=== PATIENT | female | born 1945 | race Caucasian/White ===

== ENCOUNTER 2017-10-09 05:16 | Day surgery (SDC) | payer OTHER ==
[2017-10-08 12:29] LABS: HEMATOCRIT 43.2 % (36.0-48.0); HEMOGLOBIN 14.1 g/dL (12-16); MCH 28.6 pg (26.0-34.0); MCHC 32.6 g/dL (31.0-37.0); MCV 87.6 fL (80.0-100.0); MEAN PLATELET VOLUME 11.8 fL (7.4-10.4); RBC 4.93 10x6/uL (4.00-5.40); RDW 14.1 % (11.5-14.5); WBC 6.7 10x3/uL (4.8-10.8)
[2017-10-09 10:22] VITALS: BP 154/84; BMI 33.7
--- NOTE | 2017-10-09 16:09 | NUR ---
1610--IV DC'D, PT UP TO DRESS AT THIS TIME. SHEN RN
--- NOTE | 2017-10-09 16:36 | NUR ---
1635--IV DC'D, PT UP TO DRESS AT THIS TIME. SHEN RN
--- NOTE | 2017-10-09 16:42 | NUR ---
1640--DISCHARGE INSTRUCTIONS GIVEN, PT VERBALIZES UNDERSTANDING. PT OFF UNIT VIA [place]. SHEN CLEMONS
--- NOTE | 2017-11-06 11:32 | OP ---
PATIENT NAME: JUAN DAVID CASTLE MEDICAL RECORD: [id number] :45 LOCATION:[facility] ADMISSION DATE: SURGEON: LEONARDO PLATA DPM DATE OF OPERATION: 10/09/2017 PREOPERATIVE DIAGNOSIS: Peroneal brevis tendinosis. POSTOPERATIVE DIAGNOSIS: Peroneal brevis tendinosis. PROCEDURES: Peroneal longus tendon transfer and peroneal brevis debridement. ANESTHESIA: Local with IV sedation utilizing lidocaine and Marcaine plain, approximately 18 cc total around the lateral right foot. HEMOSTASIS: Right thigh tourniquet at 350 mmHg. PREOPERATIVE DETAILS: The patient was taken to the OR and placed on the operative table in supine position followed by induction of general anesthesia and infiltration of local anesthetic. The right extremity was then prepped and draped in usual aseptic technique followed by exsanguination and inflation of tourniquet. A #15 blade was used to create an incision from the posterior aspect of the right fibula distally to the base of the fifth metatarsal. The incision was deepened down through subcutaneous tissue, noting a significantly large deposit of fat, which was excised. Dissection was carried down to the peroneal tendons. The sheath was incised. Upon initial incision of the sheath, there was significant amount of red inflammatory thick fluid that came out of the sheath. The sheath was laid open from just posterior to the fibula to near the cuboid. The brevis tendon was visualized. There was significant tendinosis and longitudinal tears, many in number. The tendon was not repairable or salvageable. At this time, just posterior to the fibula, the tendon was tacked with 2-0 Vicryl, then cut, and sutured to the peroneal longus tendon. Dissection was carried distal to the base of the fifth metatarsal, where the peroneal brevis tendon was cut there as well and sent to pathology. Dissection was carried down to the peroneal longus as it entered the plantar aspect of the foot and was transected. A tendon anchor was placed in the base of the fifth metatarsal and the peroneal longus tendon was sutured securely with FiberWire to the base of the fifth metatarsal. Excellent rigid fixation was noted. Deep layers were repaired with 2-0 Vicryl including the tendon sheath, the subcutaneous tissue with 4-0 Vicryl, and the skin was closed with skin luzma. Adaptic, 4 x 4, and Conform were used to dress the wound followed by modified Barcenas compression dressing. Tourniquet was deflated. POSTOPERATIVE DETAILS: The patient tolerated the procedure well and left the OR with vital signs stable and vascular status at preoperative levels. The patient was transferred to recovery per anesthesia in stable condition. TRANSINT:[id number] Voice Confirmation ID: [id number] DOCUMENT ID: [id number] OPERATIVE REPORT [id number] JUAN DAVID CASTLE, LEONARDO THOMPSON at 1132 CC: [id number] DICTATION DATE: 10/09/17 1428 JAVA PORTAL DEVELOPER: 10/09/17 1529 [facility] 10/09/17 [id number] [place] [address]
== END 2017-10-09 17:00 | disposition home or self-care (01) ==
LOC: D.OPS 05:16 → D.PAN 14:00 → D.OPS 17:00
PROVIDERS: Anesthesiology
DX: M76.71 Peroneal tendinitis, right leg (principal); Z01.812 Encounter for preprocedural laboratory examination